=== PATIENT | male | born 1950 | race Hispanic/Latino ===

== ENCOUNTER 2019-10-16 09:48 | Outpatient (CLI) | payer MEDICARE, BC ==
[2019-10-16 12:06] LABS: Hemoglobin 15.7 g/dL (14.0-18.0); Mean Corpuscular HGB CONC 34.3 g/dL (32.0-36.0); Mean Corpuscular Hemoglobin 29.7 pg (27.0-31.0); Mean Corpuscular Volume 86.7 fL (78.0-98.0); Mean Platelet Volume 8.1 fL (7.4-10.4); Platelet Count 201 thou/uL (130-400); RBC Distribution Width 11.8 % (11.5-14.5); Red Blood Cell (RBC) Count 5.27 mill/uL (4.70-6.10); White Blood Cell (WBC) Count 7.5 thou/uL (4.8-10.8)
[2019-10-16 12:10] LABS: Bacteria/HPF None Seen HPF (None Seen); Bilirubin Negative (Negative); Blood, Urine Trace (Negative); Clarity Clear (Clear); Glucose, Urine (Dipstick) 300 mg/dL (Negative); Leukocyte Negative Leu/uL (Negative); Nitrite Negative (Negative); Protein, Urine (Dipstick) Negative (Neg-Trace); Squamous Epithelial None Seen HPF (0-3); Urobilinogen Normal mg/dL (Less than 2); WBC/HPF 0-3 HPF (0-3)
[2019-10-16 12:13] LABS: INR-International Normal Ratio 0.9; PTT 34.7 SEC (22.9-36.1); Prothrombin Time 12.5 SEC (12.0-14.7)
[2019-10-16 12:23] LABS: Anion Gap 13 mmol/L (10-20); BUN (Urea Nitrogen) 13 mg/dL (8.4-25.7); Calc. Creatinine Clearance 0 mL/min (70-130); Calcium 8.6 mg/dL (7.8-10.44); Carbon Dioxide 26 mmol/L (23-31); Chloride 104 mmol/L (98-107); Estimated GFR-MDRD 75; Glucose 153 mg/dL (80-115); Sodium 139 mmol/L (136-145)
== END 2019-10-16 09:49 | disposition home or self-care (01) ==
LOC: LABBT 09:48
PROVIDERS: ATTEND Urology
DX: Z01.818 Encounter for other preprocedural examination (principal); Z12.5 Encounter for screening for malignant neoplasm of prostate; N40.1 Benign prostatic hyperplasia with lower urinary tract symptoms; R35.0 Frequency of micturition; E11.9 Type 2 diabetes mellitus without complications; R31.29 Other microscopic hematuria; N52.8 Other male erectile dysfunction
CPT/HCPCS: 80048; 81001; 85027; 85610; 85730; 87086; 93005; 93010

== ENCOUNTER 2019-10-28 06:59 | Day surgery (SDC) | payer MEDICARE, BC ==
[2019-10-16 10:21] VITALS: BMI 32.6
[2019-10-28] MEDS ORDERED: Levofloxacin 500 mg/D5W 100 ml Premix Bag ONE (07:57)
[2019-10-28] MEDS ORDERED: Fentanyl 100 MCG/2 ML VIAL ONE (08:37)
[2019-10-28] MEDS ORDERED: Glycopyrrolate 0.2 MG/ML 5 ML SYRINGE ONE (09:21)
[2019-10-28] MEDS ORDERED: PROPOFOL 200 MG/20 ML VIAL ONE (09:21)
[2019-10-28] MEDS ORDERED: Lidocaine 1% PF 5 ML VIAL ONE (09:21)
[2019-10-28] MEDS ORDERED: Ondansetron PF 4 MG/2 ML Vial ONE (09:21)
--- NOTE | 2019-10-28 09:36 | OP ---
DATE OF PROCEDURE: 10/28/2019 PREOPERATIVE DIAGNOSIS: A 68-year-old male with history of benign prostatic hyperplasia. POSTOPERATIVE DIAGNOSIS: A 68-year-old male with history of benign prostatic hyperplasia. PROCEDURE PERFORMED: Cystoscopy, UroLift implant x6. ANESTHESIA: TIVA. COMPLICATIONS: None apparent. DISPOSITION: To recovery room in stable condition. INDICATIONS FOR PROCEDURE AND HISTORY: Mr. Cedeno is a pleasant 68-year-old male, whom I had seen previously for elevated PSA, biopsy negative for malignancy. He has been on dual medical therapy for his prostatic enlargement for numerous years and desires to proceed with UroLift. Risks and complications of the procedure were reviewed with him in detail including, but not limited to, bleeding, pain, infection, injury to adjacent organs such as neurovascular bundle, ureteral orifices, chronic pain, possible secondary procedure, possible migration and encrustation of stone resulting in urolithiasis was reviewed with him in detail and he desired to proceed. Options of observation also discussed. DESCRIPTION OF PROCEDURE: After an informed consent was signed, the patient was taken to the operating room, placed in the dorsal lithotomy position with the genital area prepped and draped in the usual surgical sterile fashion. A 22- [place] cystoscope was utilized for cystoscopy, which demonstrated bilobar hyperplasia of the prostate moderately obstructing. The UOs were identified away from the proximal bladder neck. There was no evidence of bladder stone, calculi of concern. Trabeculated bladder was noted with consistent chronic outlet obstruction. At this time, we transitioned to UroLift implant obturator, which was passed with visual assist. We implanted the left lateral lobe first , staying about 1.5 cm proximal to the bladder neck. Three implants were placed on the left lobe, three on the right side. Good compression of the lateral lobes resulting in nice anterior channel was noted. He tolerated the procedure uneventfully. I will watch him for a voiding trial and anticipate discharge this afternoon. He is discharged with ciprofloxacin for course of 5 days, Azo [id number] p.r.n. for dysuria. He is to continue his BPH medications. Job ID: [id number] [facility]
[2019-10-28] MEDS ORDERED: Phenazopyridine HCl 97.5 MG TABLET ONE (10:02)
[2019-10-28] MEDS ORDERED: HYDROcodone/Acetaminophen 5/325 mg Tablet ONE (11:38)
== END 2019-10-28 16:10 | disposition home or self-care (01) ==
LOC: SDC 06:59
PROVIDERS: ATTEND Urology
PROC: 0T7D8DZ Dilation of Urethra with Intraluminal Device, Via Natural or Artificial Opening Endoscopic (ICD-10-PCS; principal; 2019-10-28)
DX: N40.1 Benign prostatic hyperplasia with lower urinary tract symptoms (principal); R35.0 Frequency of micturition; R35.1 Nocturia; N52.9 Male erectile dysfunction, unspecified; N28.1 Cyst of kidney, acquired; E78.5 Hyperlipidemia, unspecified; I10 Essential (primary) hypertension; G47.00 Insomnia, unspecified; E11.9 Type 2 diabetes mellitus without complications; F10.21 Alcohol dependence, in remission; F17.210 Nicotine dependence, cigarettes, uncomplicated; Z79.82 Long term (current) use of aspirin; Z79.84 Long term (current) use of oral hypoglycemic drugs; Z79.899 Other long term (current) drug therapy; Z91.018 Allergy to other foods
CPT/HCPCS: J1956; J2001; J2405; J2704; J3010

== ENCOUNTER 2021-01-09 17:31 | Emergency (ER) | payer OTHER, MEDICARE, BC ==
[2021-01-09] MEDS ORDERED: HYDROcodone/Acetaminophen 5/325 mg Tablet ONE (18:29)
== END 2021-01-09 19:09 | disposition home or self-care (01) ==
LOC: ERS 17:31
DX: S83.91XA Sprain of unspecified site of right knee, initial encounter (principal); K21.9 Gastro-esophageal reflux disease without esophagitis; E78.5 Hyperlipidemia, unspecified; F17.210 Nicotine dependence, cigarettes, uncomplicated; I10 Essential (primary) hypertension; W01.0XXA Fall on same level from slipping, tripping and stumbling without subsequent striking against object, initial encounter

== ENCOUNTER 2022-12-05 06:59 | Outpatient (CLI) | payer MEDICARE, BC | END 2022-12-05 07:00 | disposition home or self-care (01) | LOC: BICULT 06:59 → ULT 07:00 | PROVIDERS: ATTEND Family Medicine | DX: Z13.6 Encounter for screening for cardiovascular disorders (principal) | CPT/HCPCS: 76775 ==

== ENCOUNTER 2024-04-01 16:35 | Outpatient (CLI) | payer MEDICARE ==
[2024-04-01 17:36] LABS: Bilirubin Neg (Negative); Blood, Urine 25 (Negative); Clarity Clear (Clear); Glucose, Urine (Dipstick) Normal (Negative); Ketone, Urine Negative (Negative); Leukocyte 25 (Negative); Nitrite Negative (Negative); Protein, Urine (Dipstick) 15 mg/dl (Neg-Trace)
[2024-04-01 17:47] LABS: Bacteria/HPF Rare-Few HPF (None Seen); Hematocrit 42.3 % (38.8-50.0); Hemoglobin 14.6 g/dL (13.5-17.5); Mean Corpuscular HGB CONC 34.5 g/dL (32.0-36.0); Mean Corpuscular Hemoglobin 29.6 pg (27.0-33.0); Mean Corpuscular Volume 85.8 fL (81.2-95.1); Mucous/LPF 1+ LPF (<2+); Platelet Count 235 10x3/uL (150-450); RBC Distribution Width 13.2 % (11.5-14.5); RBC/HPF 0-3 HPF (0-3); Red Blood Cell (RBC) Count 4.93 10x6/uL (4.32-5.72); Squamous Epithelial 0-3 HPF (0-3); WBC/HPF 0-3 HPF (0-3); White Blood Cell (WBC) Count 7.9 10x3/uL (3.5-10.5)
[2024-04-01 17:48] LABS: PTT 28.8 sec (22.0-33.0); Prothrombin Time 10.7 sec (9.5-12.1)
[2024-04-01 17:50] LABS: Anion Gap 12 mmol/L (10-20); BUN (Urea Nitrogen) 18 mg/dL (8.4-25.7); Calc. Creatinine Clearance 0 mL/min (70-130); Calcium 9.7 mg/dL (7.8-10.44); Carbon Dioxide 27 mmol/L (23-31); Chloride 108 mmol/L (98-107); Estimated GFR 83; Glucose 98 mg/dL (83-110); Potassium 4.3 mmol/L (3.5-5.1); Sodium 143 mmol/L (136-145)
== END 2024-04-01 16:36 | disposition home or self-care (01) ==
LOC: LABBT 16:35
PROVIDERS: ATTEND Urology
DX: Z01.818 Encounter for other preprocedural examination (principal); Z12.5 Encounter for screening for malignant neoplasm of prostate; N40.1 Benign prostatic hyperplasia with lower urinary tract symptoms; R35.0 Frequency of micturition; R31.29 Other microscopic hematuria; E11.9 Type 2 diabetes mellitus without complications; N52.8 Other male erectile dysfunction; N28.1 Cyst of kidney, acquired; I10 Essential (primary) hypertension; Q62.5 Duplication of ureter
CPT/HCPCS: 80048; 81001; 85027; 85610; 85730; 86850; 86900; 86901; 87086; 93005; 93010

== ENCOUNTER 2024-04-15 12:22 | Emergency (ER) | payer MEDICARE ==
[2024-04-15] MEDS ORDERED: Acetaminophen 500 MG TAB ONE (13:11)
[2024-04-15 14:38] LABS: Influenza A by NAA Not Detected (NotDetected); Influenza B by NAA Not Detected (NotDetected); SARS-CoV-2 NAA Rapid Test DETECTED (NotDetected)
== END 2024-04-15 15:07 | disposition home or self-care (01) ==
LOC: ERS 12:22
DX: U07.1 COVID-19 (principal); I10 Essential (primary) hypertension; F17.210 Nicotine dependence, cigarettes, uncomplicated; E78.5 Hyperlipidemia, unspecified; Z79.899 Other long term (current) drug therapy; E11.9 Type 2 diabetes mellitus without complications; Z79.84 Long term (current) use of oral hypoglycemic drugs
CPT/HCPCS: 0240U; 99283; 99284

== ENCOUNTER → 2024-04-15 | Day surgery (SDC) | payer MEDICARE ==
[2024-04-01 16:54] VITALS: BMI 28.8
== END ==
LOC: SDC 07:43
PROVIDERS: ATTEND Urology
DX: N40.1 Benign prostatic hyperplasia with lower urinary tract symptoms (principal); R35.0 Frequency of micturition; Z53.9 Procedure and treatment not carried out, unspecified reason; R31.29 Other microscopic hematuria; E11.9 Type 2 diabetes mellitus without complications; N52.8 Other male erectile dysfunction; N28.1 Cyst of kidney, acquired; I10 Essential (primary) hypertension; Q62.5 Duplication of ureter; Z79.899 Other long term (current) drug therapy; E78.5 Hyperlipidemia, unspecified; R91.1 Solitary pulmonary nodule; R97.20 Elevated prostate specific antigen [PSA]; F17.210 Nicotine dependence, cigarettes, uncomplicated; Z88.8 Allergy status to other drugs, medicaments and biological substances; Z91.018 Allergy to other foods
CPT/HCPCS: 86850; 86900; 86901; J1100; J2001; J2405; J2704

== ENCOUNTER 2024-07-22 08:59 | Observation (INO) | payer MEDICARE ==
[2024-07-08 12:39] VITALS: BMI 28.5
[2024-07-22] MEDS ORDERED: LevoFLOXacin D5W 500 mg (100 mL) BAG ONE (12:28)
[2024-07-22] MEDS ORDERED: fentaNYL PF 100 MCG/2 ML SYRINGE ONE (12:31)
[2024-07-22] MEDS ORDERED: Lidocaine 1% PF 5 ML VIAL ONE (12:31)
[2024-07-22] MEDS ORDERED: PROPOFOL 20 ML ONE (12:31)
[2024-07-22] MEDS ORDERED: Midazolam HCl 2 mg/2 ml Vial ONE (13:20)
[2024-07-22] MEDS ORDERED: Dexamethasone 20 MG/5 ML VIAL ONE (13:33)
[2024-07-22] MEDS ORDERED: Ondansetron PF 4 MG/2 ML Vial ONE (13:33)
[2024-07-22] MEDS ORDERED: Glycopyrrolate 0.2 MG/ML 5 ML SYRINGE ONE (13:35)
[2024-07-22] MEDS ORDERED: ePHEDrine Sulfate 50 MG/10 ML VIAL ONE (14:11)
[2024-07-22] MEDS ORDERED: Rocuronium Bromide 10 MG/ML (10ML VIAL) ONE (14:25)
[2024-07-22] MEDS ORDERED: NEOSTIGMINE 3 MG/3 ML SYRINGE ONE (14:25)
[2024-07-22] MEDS ORDERED: Zolpidem Tartrate 5 MG TAB PO PRN (15:01)
[2024-07-22] MEDS ORDERED: HYDROcodone/Acetaminophen 5/325 mg Tablet PO PRN ×2 (15:01)
[2024-07-22] MEDS ORDERED: diphenhydrAMINE 50 MG/ML VIAL IVP PRN (15:01)
[2024-07-22] MEDS ORDERED: hydrALAZINE 20 MG/ML VIAL SLOW IVP PRN (15:01)
[2024-07-22] MEDS ORDERED: Morphine 2 MG/ML VIAL SLOW IVP PRN (15:01)
[2024-07-22] MEDS ORDERED: Dextrose 5% in Water 1,000 ML IV PRN (15:04)
[2024-07-22] MEDS ORDERED: Glucagon 1 MG/ML KIT IM PRN (15:04)
[2024-07-22] MEDS ORDERED: Insulin Regular, Human 100 UNIT/ML 10 ML VIAL SC PRN (15:04)
[2024-07-22] MEDS ORDERED: Dextrose 50% Abboject 50 ML SYRINGE SLOW IVP PRN (15:04)
[2024-07-22] MEDS ORDERED: Ondansetron PF 4 MG/2 ML Vial IVP PRN (15:04)
[2024-07-22] MEDS ORDERED: Hyoscyamine SL 0.125 MG TAB ONE (15:23)
[2024-07-22] MEDS ORDERED: fentaNYL 50 mcg/mL 1 mL Vial ONE (15:23)
[2024-07-22] MEDS: Hyoscyamine SL 0.125 MG TAB SL PRN (15:28)
[2024-07-22] MEDS: Sodium Chloride 0.9% 1,000 ML IV SCH (15:35)
[2024-07-22] MEDS ORDERED: Morphine 4 MG/ML VIAL ONE (15:43)
[2024-07-22 16:27] LABS: #Basophils 0.03 10x3/uL (0.0-0.2); %Basophils 0.3 % (0.0-1.0); %Eosinophils 2.4 % (0.0-10.0); %Lymphocytes 13.4 % (21.0-51.0); %Monocytes 2.1 % (0.0-10.0); Hematocrit 39.3 % (42.0-52.0); Hemoglobin 13.2 g/dL (14.0-18.0); Mean Corpuscular HGB CONC 33.6 g/dL (32.0-36.0); Mean Corpuscular Hemoglobin 29.6 pg (27.0-31.0); Mean Corpuscular Volume 88.1 fL (78.0-98.0); Mean Platelet Volume 9.6 fL (7.4-10.4); Platelet Count 160 10x3/uL (130-400); RBC Distribution Width 13.2 % (11.5-14.5); Red Blood Cell (RBC) Count 4.46 mill/uL (4.70-6.10)
[2024-07-22 16:39] LABS: Anion Gap 9 mmol/L (10-20); BUN (Urea Nitrogen) 13 mg/dL (8.4-25.7); Calc. Creatinine Clearance 106 mL/min (70-130); Calcium 8.2 mg/dL (7.8-10.44); Carbon Dioxide 25 mmol/L (23-31); Chloride 110 mmol/L (98-107); Estimated GFR 96; Glucose 131 mg/dL (83-110); Potassium 3.6 mmol/L (3.5-5.1); Sodium 140 mmol/L (136-145)
[2024-07-22] MEDS ORDERED: Famotidine/PF 20 mg/2ml Vial SLOW IVP SCH (21:00)
[2024-07-22] MEDS ORDERED: Pravastatin 80 MG Tablet PO SCH (21:00)
[2024-07-22] MEDS: metFORMIN 500 MG TAB PO SCH (21:37)
[2024-07-22] MEDS: Phenazopyridine HCl 100 MG TAB PO SCH (21:37)
[2024-07-22] MEDS: Docusate 100 MG CAP PO SCH (21:37)
[2024-07-22] MEDS: Venlafaxine HCl XR 150 MG CAP PO SCH (21:37)
[2024-07-23] MEDS: cefTRIAXone\\ROCEPHIN 1 GM in Sodium Chloride 0.9% 100 ML IVPB SCH (05:17)
[2024-07-23 05:38] LABS: #Basophils Less than 0.03 10x3/uL (0.0-0.2); #Eosinphils Less than 0.03 10x3/uL (0.0-0.7); %Basophils 0.2 % (0.0-1.0); %Eosinophils 0.1 % (0.0-10.0); %Lymphocytes 8.6 % (21.0-51.0); %Monocytes 4.5 % (0.0-10.0); %Neutrophils 86.2 % (42.0-75.0); Hematocrit 37.1 % (42.0-52.0); Hemoglobin 12.5 g/dL (14.0-18.0); Mean Corpuscular HGB CONC 33.7 g/dL (32.0-36.0); Mean Corpuscular Volume 86.1 fL (78.0-98.0); Mean Platelet Volume 10.2 fL (7.4-10.4); Platelet Count 175 10x3/uL (130-400); RBC Distribution Width 12.9 % (11.5-14.5); Red Blood Cell (RBC) Count 4.31 mill/uL (4.70-6.10)
[2024-07-23 05:50] LABS: Anion Gap 12 mmol/L (10-20); BUN (Urea Nitrogen) 14 mg/dL (8.4-25.7); Calc. Creatinine Clearance 99 mL/min (70-130); Calcium 8.4 mg/dL (7.8-10.44); Carbon Dioxide 22 mmol/L (23-31); Chloride 108 mmol/L (98-107); Estimated GFR 94; Glucose 225 mg/dL (83-110); Potassium 3.6 mmol/L (3.5-5.1); Sodium 138 mmol/L (136-145)
[2024-07-23 06:15] VITALS: TEMP 98.1
[2024-07-23 07:48] VITALS: BP 169/67
[2024-07-23] MEDS: Amlodipine 10 MG TAB PO SCH (08:39)
[2024-07-23] MEDS: Losartan 25 MG TAB PO SCH (08:39)
[2024-07-23] MEDS: Finasteride 5 MG TAB PO SCH (08:39)
[2024-07-23] MEDS: hydrALAZINE 25 MG TAB PO SCH (08:39)
[2024-07-23] MEDS: Pantoprazole DR 40 MG TAB PO SCH (08:39)
[2024-07-23] MEDS: Tamsulosin HCl 0.4 MG CAP PO SCH (08:39)
[2024-07-23] MEDS: Hydrochlorothiazide 25 MG TAB PO SCH (08:40)
[2024-07-23] MEDS: Polyethylene Glycol 3350 17 GM Packet PO SCH (08:40)
[2024-07-24] MEDS ORDERED: FLU (Fluad Triv) TS24-25 (65UP)/MF59C/PF 45 MCG/0.5 ML Syringe IM ONE (09:00)
== END 2024-07-23 11:36 | disposition home or self-care (01) ==
LOC: SDC 08:59 → SURG B 19:46
PROVIDERS: ADMIT Urology; ATTEND Urology
PROC: 0VT08ZZ Resection of Prostate, Via Natural or Artificial Opening Endoscopic (ICD-10-PCS; principal; 2024-07-22)
DX: N40.1 Benign prostatic hyperplasia with lower urinary tract symptoms (principal); R35.0 Frequency of micturition; N52.8 Other male erectile dysfunction; N28.1 Cyst of kidney, acquired; Q62.5 Duplication of ureter; G47.33 Obstructive sleep apnea (adult) (pediatric); E78.5 Hyperlipidemia, unspecified; I10 Essential (primary) hypertension; K76.0 Fatty (change of) liver, not elsewhere classified; R97.20 Elevated prostate specific antigen [PSA]; K29.70 Gastritis, unspecified, without bleeding; E11.9 Type 2 diabetes mellitus without complications; Z79.899 Other long term (current) drug therapy; F17.200 Nicotine dependence, unspecified, uncomplicated; Z88.8 Allergy status to other drugs, medicaments and biological substances; Z91.018 Allergy to other foods; Z79.82 Long term (current) use of aspirin; Z98.890 Other specified postprocedural states
CPT/HCPCS: 52601; 80048 ×2; 82962; 85025 ×2; 86850; 86900; 86901; J0696; J1100; J1956; J2250; J2272; J2405; J2704; J3010; J7030; 36415; 36416; 88305; A4333